=== PATIENT | female | born 1985 | race African-American/Black ===

== ENCOUNTER 2020-12-01 17:51 | Emergency (ER) | payer BC, SELFPAY ==
[2020-12-01 18:02] VITALS: BP 123/75; PULSE 88; RESP 16; TEMP 37; O2SAT 100
--- NOTE | 2020-12-01 18:51 | ED.BACK ---
HPI - Back Pain/Injury General Chief Complaint: Back Pain/Injury Stated Complaint: Neck and Back Pain Source: patient, RN notes reviewed and old records reviewed Mode of arrival: ambulatory Limitations: no limitations History of Present Illness HPI Narrative: 34-year-old female presents to [facility] with complaints of pain to her right upper back which radiates to the right side of her neck to her right shoulder and down her arm for the past 2 to 3 days.Patient states that she knows of no known injury to her upper back shoulder or neck. Patient reports that she has been taking Ibuprofen, Naprosyn, using topical icy Hot and application of Lidocaine patch to her right upper back and deep tissue massage with no pain improvement or resolution. Patient has full ROM of right arm with no increase discomfort, full ROM of neck and no tingling or numbness to upper extremities with strong pulses to bilateral arms. MD elicited complaint: other (pain to right upper back) Onset (ago): day(s) (3) Timing: constant Severity: severe Pain scale (0-10): 8 Quality: burning Related Data Allergies Allergy/AdvReac Type Severity Reaction Status Date / Time azelastine [From Astelin] Allergy Unknown Verified 12/01/20 18:11 codeine Allergy Unknown Verified 12/01/20 18:10 metaxalone [From Skelaxin] Allergy Unknown Verified 12/01/20 18:11 Review of Systems Review of Systems: CONSTITUTIONAL: Denies fever, chills, or sweats. EYES: Denies visual changes, redness, or discharge. ENT: Denies rhinorrhea, congestion, sore throat, or otalgia. CARDIOVASCULAR: Denies chest pain, palpitations, or edema. RESPIRATORY: Denies cough or dyspnea. GASTROINTESTINAL: Denies abdominal pain, nausea, vomiting, or diarrhea. GENITOURINARY: Denies dysuria or hematuria. SKIN: Denies rash or itching. MUSCULOSKELETAL: Positive for right upper back pain radiating to right neck and right shoulder or myalgia with no known injury NEUROLOGIC: Denies headache, numbness, or weakness. PSYCHIATRIC: Denies anxiety or depression. All systems reviewed & are unremarkable except as noted in HPI and below PMFSH Past Medical History Medical History (Updated 12/06/20 @ 11:05 by Rossi Friedman NP) Obesity has had weight loss surgery Surgical History Surgical History (Updated 12/06/20 @ 10:59 by Rossi Friedman NP) History of abdominoplasty History of umbilical hernia repair History of weight loss surgery Hx of cholecystectomy Previous section X2 Family History Family History (Updated 12/06/20 @ 10:57 by Rossi Friedman NP) Mother Lung cancer Father Hypertension Grandparent Acute myocardial infarction Social History Social History (Updated 12/06/20 @ 10:56 by Rossi Friedman NP) Smoking status: Never smoker Alcohol intake: never Substance use: never Living arrangements: with family Gender identity (if verbalized by the patient): Female Comments At time of signature, agree with nursing past medical, surgical, social and family history. There is no relevant family history pertinent to the presenting complaint Exam Narrative: GENERAL: Well-appearing, well-nourished, and in no acute distress. HEAD: Normocephalic, atraumatic. EYES: PERRLA and EOMI. ENT: Nares clear, no rhinorrhea or epistaxis. Mucous membranes moist. NECK: Supple. no lymphadenopathy able to move neck in all directions with no acute pain CHEST: Clear to auscultation. No respiratory distress.SAO2 100% on room air HEART: Regular rate and rhythm. No murmur heard. Normal peripheral pulses. ABDOMEN: Soft, nontender, nondistended, normal active bowel sounds. EXTREMITIES: Normal range of motion. No edema.Pain to right upper back which radiates to right side of neck and into right shoulder which goes into her arm at times, has full mobility of her arm and neck with no increase pain, has point tenderness to right upper back above scapula. Patient has strong pulses to bilateral arms with no ti
== END 2020-12-01 19:08 | disposition home or self-care (01) ==
PROVIDERS: Emergency Provider Registered Nurse
DX: S46.811A Strain of other muscles, fascia and tendons at shoulder and upper arm level, right arm, initial encounter (principal); X58.XXXA Exposure to other specified factors, initial encounter; Z98.84 Bariatric surgery status
CPT/HCPCS: 99203; G0463